=== PATIENT | female | born 1985 | race Caucasian/White ===

== ENCOUNTER 2018-03-03 11:09 | Emergency (ER) | payer MEDICAID ==
[~2018-03-03] VITALS: Ht 154.9 cm; Wt 89.8 kg
[~2018-03-03 11:09] MED LIST: AUG500 PO; CEPACOL SORE TH1 LO4 MM; IBUPROFEN400 MG PO; LAC PO
[2018-03-03 11:17] VITALS: Ht 154.9 cm; Wt 89.8 kg
[2018-03-03 12:32] LABS: BASOPHIL % 0.3 % (0-2); PLATELET COUNT 371 x10^3mcL (130-400); RED CELL DISTRIBUTION WIDTH 13.6 % (11.5-14.5)
[2018-03-03 12:45] LABS: CALCIUM 8.1 mg/dL (8.5-10.1); CARBON DIOXIDE 27.9 mmol/L (21-32); CHLORIDE SERUM 111 mmol/L (98-107); CREATININE SERUM 0.5 mg/dL (0.6-1.0); GFR1 > 60 mL/min; GLUCOSE SERUM 93 mg/dL (74-106); POTASSIUM SERUM 4.3 mmol/L (3.5-5.1); SODIUM SERUM 146 mmol/L (136-145)
[2018-03-03 12:52] LABS: ALKALINE PHOSPHATASE 84 U/L (46-116); ALT/SGPT 20 U/L (14-59); AST/SGOT 12 U/L (15-37); BILIRUBIN TOTAL 0.67 mg/dL (0.20-1.00); LIPASE 80 IU/L (73-393)
[2018-03-03 12:54] LABS: ALBUMIN 2.9 g/dL (3.4-5.0); TOTAL PROTEIN, SERUM 6.1 g/dL (6.4-8.2)
[2018-03-03 14:08] LABS: UA SPECIFIC GRAVITY 1.025 (1.005-1.035); microscopic required? YES; urine erythrocyte 1+ (NEGATIVE)
[2018-03-03 14:24] VITALS: BP 121/66
== END 2018-03-03 14:24 | disposition home or self-care (01) ==
LOC: ED 11:09
PROVIDERS: Emergency Medicine
DX: N39.0 Urinary tract infection, site not specified (principal); Z90.49 Acquired absence of other specified parts of digestive tract; F17.210 Nicotine dependence, cigarettes, uncomplicated
CPT/HCPCS: J1885; J2405

== ENCOUNTER 2019-07-17 19:08 | Emergency (ER) | payer MEDICAID ==
[~2019-07-17] VITALS: Ht 154.9 cm; Wt 96.6 kg
[2019-07-17 19:32] VITALS: Ht 154.9 cm; Wt 96.6 kg
[2019-07-17 21:42] VITALS: BP 116/78
== END 2019-07-17 21:42 | disposition home or self-care (01) ==
LOC: ED 19:08
DX: G43.909 Migraine, unspecified, not intractable, without status migrainosus (principal); F17.200 Nicotine dependence, unspecified, uncomplicated; Z90.49 Acquired absence of other specified parts of digestive tract
CPT/HCPCS: 99406; J0780; J1885